=== PATIENT | male | born 1950 ===

== ENCOUNTER 2018-11-24 15:32 | Outpatient (CLI) | payer OTHER ==
[~2018-11-24] VITALS: Ht 172.7 cm; Wt 64.4 kg
== END 2018-11-24 15:45 | disposition home or self-care (01) ==
LOC: OFIC 805 15:32
DX: R42 Dizziness and giddiness (principal); R09.81 Nasal congestion; H69.83 Other specified disorders of Eustachian tube, bilateral

== ENCOUNTER 2019-01-05 09:31 | Outpatient (CLI) | payer OTHER ==
[~2019-01-05] VITALS: Ht 152.4 cm; Wt 64.4 kg
== END 2019-01-05 09:45 | disposition home or self-care (01) ==
LOC: OFIC 805 09:31
DX: H69.83 Other specified disorders of Eustachian tube, bilateral (principal); R09.81 Nasal congestion; R42 Dizziness and giddiness

== ENCOUNTER 2024-08-14 06:20 | Day surgery (SDC) | payer OTHER ==
[~2024-08-14 06:20] MED LIST: AMLODIPINE-OLM1 EACH; CABERGOLINE0.5 MG; CLOPIDOGREL BIS75 MG; LOSARTAN POTAS100 MG; ROSUVASTATIN CA20 MG
[2024-08-14] MEDS ORDERED: TRAM1TAB98 PO (07:43)
[2024-08-14] MEDS ORDERED: BUPIVACAINE HCL 30 ML VIAL IV ONE (08:45)
[2024-08-14] MEDS ORDERED: LIDOCAINE HCL 1%/EPINEPHRINE 20ML VIAL IJ ONE (08:45)
[2024-08-14] MEDS ORDERED: METRONIDAZOLE/SODIUM CHLORIDE 500 MG/100 ML PIGGYBACK IV ONE (09:00)
[2024-08-14] MEDS ORDERED: CEFTRIAXONE SODIUM 2,000 MG VIAL IV ONE (09:00)
[2024-08-14] MEDS ORDERED: HEPARIN SODIUM,PORCINE 0.5 UNITS/ML SYRINGE IV ONE (09:00)
== END 2024-08-14 12:05 | disposition home or self-care (01) ==
LOC: CIR.AMB 06:20
PROVIDERS: ATTEND Surgery
DX: C20 Malignant neoplasm of rectum (principal)
CPT/HCPCS: 36561; C1751